=== PATIENT | female | born 1980 | race Hispanic/Latino ===

== ENCOUNTER 2021-07-18 04:04 | Emergency (ER) | payer BC, OTHER ==
--- OUTSIDE RECORDS SUMMARY | 2021-07-18 04:07 | XMS REPORT | Continuity of Care Document ---
:1980 Author Organization [facility] t Address [address] [place] [address] Dr. Gross [address] [place] [id number] Care Team Providers Name Role Phone Unavailable Unavailable Unavailable Problems This patient has no known problems. Allergies, Adverse Reactions, Alerts This patient has no known allergies or adverse reactions. Medications This patient has no known medications. Procedures This patient has no known procedures. Results This patient has no known results.
[2021-07-18 05:27] LABS: Urine Blood 2+ (Negative); Urine Glucose Negative (Negative); Urine Protein Negative (Negative); Urine Specific Gravity >=1.030 (1.005-1.030)
[2021-07-18] MEDS ORDERED: MORPHINE 4 MG/ML SYR ONE (05:47)
[2021-07-18] MEDS ORDERED: NA CHLORIDE 0.9% 1,000 ML ONE (05:47)
[2021-07-18] MEDS ORDERED: ONDANSETRON 4 MG/2 ML VIAL ONE (05:47)
[2021-07-18 05:52] LABS: Absolute Lymphocytes (CBC) 2.4 K/uL (0.7-4.9); Hematocrit 36.4 % (36.0-45.0); Lymphocytes % 28.4 % (15.3-44.8); MPV 8.9 fL (7.6-11.3); RBC Red Blood Cell Count 4.14 M/uL (3.86-4.86)
[2021-07-18 06:20] LABS: ALT/SGPT 46 U/L (12-78); Albumin 3.4 g/dL (3.4-5.0); Alkaline Phosphatase 99 U/L (45-117); BUN Blood Urea Nitrogen 11 mg/dL (7-18); Bicarbonate 28 mmol/L (21-32); Bilirubin Direct 0.1 mg/dL (0-0.2); Bilirubin Total 0.8 mg/dL (0.2-1.0); Glucose Level 120 mg/dL (74-106); Lipase 107 U/L (73-393); Protein, Total 7.8 g/dL (6.4-8.2); Sodium Level 137 mmol/L (136-145)
[2021-07-18 06:22] LABS: AST/SGOT 31 U/L (15-37)
--- NOTE | 2021-07-18 07:15 | RAD REPORT ---
EXAM DESCRIPTION: CTAbdomen Pelvis W Contrast - 07/18/2021 6:48 am CLINICAL HISTORY: Abd pain;Flank pain COMPARISON: No comparisons TECHNIQUE: CT of the abdomen and pelvis was performed. All CT scans are performed using dose optimization technique as appropriate and may include automated exposure control or mA/KV adjustment according to patient size. FINDINGS: Lower chest: Thickened distal esophagus. Liver: Hepatic steatosis Biliary: Cholecystectomy Stomach: Status post gastric banding. Duodenum: No significant focal abnormality. Pancreas: No significant abnormality. Spleen: No significant abnormality. Adrenal: No suspicious lesions. Kidney/ureter: No hydronephrosis. No renal calculi. Retroperitoneum: No retroperitoneal adenopathy. Vascular: No aneurysm. Bowel: No significant focal abnormality. Peritoneum: 2 large intra-abdominal fluid collections which are simple in appearance. On the right, t he collection measures 21.6 cm x 16.3 cm (CC x TV). On the left measures 18 cm x 15.5 cm (CC x TV) th maylin are likely adnexal in etiology. . Bladder: Grossly unremarkable. Reproductive: There is a separate right ovarian lesion measuring 8 cm Bones: No acute fracture. Other: n/a IMPRESSION: Large simple appearing cystic abdominal collections, probably adnexal in etiology. These could represent serous cystadenomas for example. A second right ovarian lesion is noted as well. The structures are too large to evaluate with ultrasound. Recommend gynecologic consultation.
--- NOTE | 2021-07-18 07:41 | ER ---
Nurse's Notes [facility] Name: Andrea Salazar Age: 40 yrs Sex: Female : 1980 Arrival Date: 07/18/2021 Time: 04:10 Bed 20 Private MD: Diagnosis: Other ovarian cysts;Lower abdominal pain, unspecified Presentation: 07/18 04:40 Chief complaint: Patient states: "I am in pain and I guess I need someone to feel where tw5 the pain is. I thought it cramping in the front, but now I feel it across my side.". Coronavirus screen: Vaccine status: Patient reports receiving the 2nd dose of the covid vaccine. [employer]. Ebola Screen: Patient negative for fever greater than or equal to 101.5 degrees Fahrenheit, and additional compatible Ebola Virus Disease symptoms Patient denies exposure to infectious person. Patient denies travel to an Ebola-affected area in the 21 days before illness onset. Initial Sepsis Screen: Does the patient meet any 2 criteria? No. Patient's initial sepsis screen is negative. Does the patient have a suspected source of infection? No. Patient's initial sepsis screen is negative. Risk Assessment: Do you want to hurt yourself or someone else? Patient reports no desire to harm self or others. Onset of symptoms was July 17, 2021 at 17:00. 04:40 Method Of Arrival: Ambulatory tw5 04:40 Acuity: ASHLEY 3 tw5 Triage Assessment: 04:43 General: Appears in no apparent distress. obese, Behavior is calm, cooperative, tw5 appropriate for age. Pain: Complains of pain in left lower quadrant Pain radiates to anterior aspect of left lateral abdomen Pain currently is 5 out of 10 on a pain scale. GI: Reports cramping. 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 - Social history:: Smoking status: Patient denies any tobacco usage or history of. Screenin:29 Abuse screen: Denies threats or abuse. Nutritional screening: No deficits noted. vc1 Tuberculosis screening: No symptoms or risk factors identified. Fall Risk None identified. Assessment: 05:00 General: Appears in no apparent distress. uncomfortable, obese, Behavior is calm, vc1 cooperative, appropriate for age. Pain: Complains of pain in anterior aspect of left lateral abdomen and left lower quadrant Pain does not radiate. Neuro: No deficits noted. Cardiovascular: No deficits noted. GI: Bowel sounds present X 4 quads. Abd is non tender. : No signs and/or symptoms were reported regarding the genitourinary system. 06:00 Reassessment: Patient and/or family updated on plan of care and expected duration. Pain vc1 level reassessed. Patient is alert, oriented x 3, equal unlabored respirations, skin warm/dry/pink. 06:34 Reassessment: Patient to CT via stretcher. vc1 06:49 Reassessment: Patient and/or family updated on plan of care and expected duration. Pain vc1 level reassessed. Patient is alert, oriented x 3, equal unlabored respirations, skin warm/dry/pink. Patient denies pain at this time. Patient states feeling better. Patient states symptoms have improved. 08:11 General: Appears in no apparent distress. comfortable, Behavior is calm, cooperative, ww appropriate for age. Neuro: Level of Consciousness is awake, alert, obeys commands, Oriented to person, place, time, situation, Moves all extremities. Gait is steady, Speech is normal. Cardiovascular: No deficits noted. Capillary refill < 3 seconds Patient's skin is warm and dry. Respiratory: Airway is patent Respiratory effort is even, unlabored, Respiratory pattern is regular, symmetrical. GI:. Vital Signs: 04:40 BP 121 / 89; Pulse 87; Resp 18; Temp 98.5; Pulse Ox 100% on R/A; Weight 128.37 kg; tw5 Height 5 ft. 2 in. (157.48 cm); Pain 5/10; 05:28 BP 139 / 85; Pulse 82; Resp 20; Pulse Ox 100% ; vc1 06:28 BP 117 / 63; Pulse 79; Resp 17; Pulse Ox 96% on R/A; vc1 06:33 BP 117 / 63; Pulse 79; Resp 17; Pulse Ox 96% ; Pain 0/10; vc1 08:11 BP 116 / 79; Pulse 80; Resp 15; Pulse Ox 98% on R/A; ww 04:40 Body Mass Index 51.76 (128.37 kg, 157.48 cm) tw5 ED Course: 04:10 Patient arrived in ED. ag3 04:42 Triage completed. tw5 04:43 Arm band placed on left wrist. tw5 04:48 Vin Burciaga MD is Attending Physician. 7 04:56 Irma Su, RN is Primary Nurse. vc1 05:29 Patient has correct armband on for positive identification. Placed in gown. Call light vc1 in reach. secured entrance monitor on. Pulse ox on. NIBP on. Warm blanket given. 05:38 Basic Metabolic Panel Sent. vc1 05:38 CBC with Diff Sent. vc1 05:38 Hepatic Function Sent. vc1 05:38 Lipase Sent. vc1 05:38 Urine --Ancillary (enter results) Sent. vc1 05:38 Inserted saline lock: 20 gauge in right antecubital area, using aseptic technique. vc1 Blood collected. 06:48 CT Abd/Pelvis - IV Contrast Only In Process Unspecified. EDMS 06:52 William Anaya PA is PHCP. jr8 07:40 Pam Jang MD is Referral Physician. jr8 08:11 No provider procedures requiring assistance completed. intact, bleeding controlled, No ww redness/swelling at site. Pressure dressing applied. Administered Medications: 05:54 Drug: NS 0.9% 1000 ml Route: IV; Rate: 1000 ml; Site: right antecubital; vc1 05:54 Drug: morphine 4 mg Route: IVP; Site: right antecubital; vc1 06:33 Follow up: BP 117 / 63; Pulse 79 bpm; Resp 17 bpm; Pulse Ox 96% ; Pain 0/10 Adult; vc1 Response: No adverse reaction; Marked relief of symptoms; Pain is decreased; RASS: Alert and Calm (0) 05:54 Drug: Zofran (Ondansetron) 4 mg Route: IVP; Site: right antecubital; vc1 06:34 Follow up: Response: No adverse reaction vc1 Outcome: 07:40 Discharge ordered by . jr8 08:11 Discharged to home ambulatory. ww 08:11 Condition: stable 08:11 Discharge instructions given to patient, Instructed on discharge instructions, follow up and referral plans. no drinking with medication, medication usage, safety practices, Demonstrated understanding of instructions, follow-up care, medications, Prescriptions given X 2. 08:12 Patient left the ED. ww Signatures: Dispatcher [employer] EDMS William Anaya PA PA jr8 Julia Zuluaga ag3 Vin Burciaga MD MD mh7 Jennifer Liriano tw5 Mary Ann Liriano RN RN ww Irma Su RN RN vc1
--- NOTE | 2021-07-18 07:41 | EDPHYS ---
Physician Documentation [facility] Name: Andrea Salazar Age: 40 yrs Sex: Female : 1980 Arrival Date: 07/18/2021 Time: 04:10 Bed 20 Private MD: ED Physician Vin Burciaga HPI: 07/18 05:37 This 40 yrs old Female presents to ER via Ambulatory with complaints of mh7 Abdominal Cramping. 05:37 The patient presents with abdominal pain in the left lower quadrant. Onset: The mh7 symptoms/episode began/occurred yesterday. The symptoms radiate to the left flank. Associated signs and symptoms: Pertinent negatives: nausea, vomiting, and diarrhea, anorexia, blood in stools, chest pain, constipation, diarrhea, dysuria, fever, headache, hematuria, nausea, palpitations, shortness of breath, vaginal discharge, vomiting, vomiting blood. The symptoms are described as intermittent, vague, waxing/waning. Modifying factors: The symptoms are alleviated by nothing, the symptoms are aggravated by nothing. Severity of pain: At its worst the pain was moderate last night, in the emergency department the pain has improved moderately. 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 - Social history:: Smoking status: Patient denies any tobacco usage or history of. ROS: 05:37 Constitutional: Negative for fever, chills, and weight loss, Eyes: Negative for injury, mh7 pain, redness, and discharge, ENT: Negative for injury, pain, and discharge, Neck: Negative for injury, pain, and swelling, Cardiovascular: Negative for chest pain, palpitations, and edema, Respiratory: Negative for shortness of breath, cough, wheezing, and pleuritic chest pain, : Negative for injury, bleeding, discharge, and swelling, MS/Extremity: Negative for injury and deformity, Skin: Negative for injury, rash, and discoloration, Neuro: Negative for headache, weakness, numbness, tingling, and seizure, Psych: Negative for depression, anxiety, suicide ideation, homicidal ideation, and hallucinations, Allergy/Immunology: Negative for hives, rash, and allergies, Endocrine: Negative for neck swelling, polydipsia, polyuria, polyphagia, and marked weight changes, Hematologic/Lymphatic: Negative for swollen nodes, abnormal bleeding, and unusual bruising. Exam: 05:37 Constitutional: This is a well developed, well nourished patient who is awake, alert, mh7 and in no acute distress. Head/Face: Normocephalic, atraumatic. Eyes: Pupils equal round and reactive to light, extra-ocular motions intact. Lids and lashes normal. Conjunctiva and sclera are non-icteric and not injected. Cornea within normal limits. Periorbital areas with no swelling, redness, or edema. ENT: Nares patent. No nasal discharge, no septal abnormalities noted. Tympanic membranes are normal and external auditory canals are clear. Oropharynx with no redness, swelling, or masses, exudates, or evidence of obstruction, uvula midline. Mucous membranes moist. Neck: Trachea midline, no thyromegaly or masses palpated, and no cervical lymphadenopathy. Supple, full range of motion without nuchal rigidity, or vertebral point tenderness. No Meningismus. Chest/axilla: Normal chest wall appearance and motion. Nontender with no deformity. No lesions are appreciated. Cardiovascular: Regular rate and rhythm with a normal S1 and S2. No gallops, murmurs, or rubs. Normal PMI, no JVD. No pulse deficits. Respiratory: Lungs have equal breath sounds bilaterally, clear to auscultation and percussion. No rales, rhonchi or wheezes noted. No increased work of breathing, no retractions or nasal flaring. Skin: Warm, dry with normal turgor. Normal color with no rashes, no lesions, and no evidence of cellulitis. MS/ Extremity: Pulses equal, no cyanosis. Neurovascular intact. Full, normal range of motion. Neuro: Awake and alert, GCS 15, oriented to person, place, time, and situation. Cranial nerves II-XII grossly intact. Motor strength 5/5 in all extremities. Sensory grossly intact. Cerebellar exam normal. Normal gait. Psych: Awake, alert, with orientation to person, place and time. Behavior, mood, and affect are within normal limits. 05:37 Abdomen/GI: Inspection: obese Bowel sounds: normal, in all quadrants, Palpation: mild abdominal tenderness, in the left lower quadrant, mass, is not appreciated, rebound tenderness, is not appreciated, voluntary guarding, is not appreciated, involuntary guarding, is not appreciated, no appreciated organomegaly, Rectal exam: the exam is deferred, because of patient request, Indicators: McBurney's point is not tender, Brian's sign is negative, Rovsing's sign is negative, Obturator sign is negative, Psoas sign is negative, Liver: no appreciated palpable abnormalities, Hernia: not appreciated. 05:37 Back: normal spinal alignment noted, CVA tenderness, that is mild, is noted on the left, muscle spasm, is not present. Vital Signs: 04:40 BP 121 / 89; Pulse 87; Resp 18; Temp 98.5; Pulse Ox 100% on R/A; Weight 128.37 kg; tw5 Height 5 ft. 2 in. (157.48 cm); Pain 5/10; 05:28 BP 139 / 85; Pulse 82; Resp 20; Pulse Ox 100% ; vc1 06:28 BP 117 / 63; Pulse 79; Resp 17; Pulse Ox 96% on R/A; vc1 06:33 BP 117 / 63; Pulse 79; Resp 17; Pulse Ox 96% ; Pain 0/10; vc1 08:11 BP 116 / 79; Pulse 80; Resp 15; Pulse Ox 98% on R/A; ww 04:40 Body Mass Index 51.76 (128.37 kg, 157.48 cm) tw5 MDM: 06:52 Patient medically screened. jr8 07:37 Data reviewed: vital signs, nurses notes, lab test result(s), radiologic studies, CT jr8 scan. Data interpreted: Pulse oximetry: on room air is 96 %. Interpretation: normal. Counseling: I had a detailed discussion with the patient and/or guardian regarding: the historical points, exam findings, and any diagnostic results supporting the discharge/admit diagnosis, lab results, radiology results, the need for outpatient follow up, an OB/Gyne specialist, to return to the emergency department if symptoms worsen or persist or if there are any questions or concerns that arise at home. ED course: Patient remains hemodynamically stable. No acute findings on labs. Discussed CT report with patient and need to f/u with Gynecology for further evaluation. If pain worsens can come back for reevaluation. Patient good with this and will follow up. 07:57 ED course: [facility] accessed and at this time appears patient would have no indication jr8 not to have pain meds at this time. 07/18 05:26 Order name: Urine Dipstick-Ancillary; Complete Time: 05:30 EDMS 07/18 05:27 Order name: Urine --Ancillary (enter results) cs9 07/18 05:28 Order name: Urine --Ancillary; Complete Time: 07:36 EDMS 07/18 05:32 Order name: Basic Metabolic Panel; Complete Time: 07:36 7 07/18 05:32 Order name: CBC with Diff; Complete Time: 07:36 mh7 07/18 05:32 Order name: Hepatic Function; Complete Time: 07:36 mh7 07/18 05:32 Order name: Lipase; Complete Time: 07:36 mh7 07/18 05:32 Order name: IV Saline Lock; Complete Time: 05:38 mh7 07/18 05:32 Order name: Labs collected and sent; Complete Time: 05:38 mh7 07/18 05:36 Order name: CT Abd/Pelvis - IV Contrast Only; Complete Time: 07:36 mh7 Administered Medications: 05:54 Drug: NS 0.9% 1000 ml Route: IV; Rate: 1000 ml; Site: right antecubital; vc1 05:54 Drug: morphine 4 mg Route: IVP; Site: right antecubital; vc1 06:33 Follow up: BP 117 / 63; Pulse 79 bpm; Resp 17 bpm; Pulse Ox 96% ; Pain 0/10 Adult; vc1 Response: No adverse reaction; Marked relief of symptoms; Pain is decreased; RASS: Alert and Calm (0) 05:54 Drug: Zofran (Ondansetron) 4 mg Route: IVP; Site: right antecubital; vc1 06:34 Follow up: Response: No adverse reaction vc1 Disposition Summary: 07/18/21 07:40 Discharge Ordered Location: Home jr8 Problem: new jr8 Symptoms: have improved jr8 Condition: Stable jr8 Diagnosis - Other ovarian cysts jr8 - Lower abdominal pain, unspecified jr8 Followup: jr8 - With: Pam Jang MD - When: 2 - 3 days - Reason: Recheck today's complaints, Continuance of care, Re-evaluation by your physician Discharge Instructions: - Discharge Summary Sheet jr8 - Abdominal Pain, Adult jr8 - Ovarian Cyst jr8 Forms: - Medication Reconciliation Form jr8 - Thank You Letter jr8 - Antibiotic Education jr8 - Prescription Opioid Use jr8 Prescriptions: - Ibuprofen 800 mg Oral Tablet - take 1 tablet by ORAL route every 12 hours As needed take with food; 20 tablet; jr8 Refills: 0, Product Selection Permitted - Tylenol-Codeine #3 300 mg-30 mg Oral - take 2 tablet by ORAL route every 6-8 hours As needed; 20 tablet; Refills: 0, jr8 Product Selection Permitted Addendum: 07/20/2021 19:08 Co-signature as Attending Physician, Vin Burciaga MD. [facility] Signatures: Dispatcher [employer] EDWilliam Barnes PA PA jr8 Vin Burciaga MD MD [facility] Jennifer Liriano [facility] Irma Su RN RN vc1
[2021-07-18 08:27] VITALS: TEMP 98.5
[2021-07-18 08:49] VITALS: BP 116/79; O2SAT 98
== END 2021-07-18 08:12 | disposition home or self-care (01) ==
LOC: ER 04:04
DX: N83.292 Other ovarian cyst, left side (principal); I10 Essential (primary) hypertension; Z88.8 Allergy status to other drugs, medicaments and biological substances
CPT/HCPCS: 85025; 80048; 36415; 81025; 80076; 81003; 83690; 74177; 96375; 96374; 99284; Q9967; J7030; J2405